=== PATIENT | male | born 1950 | race Two or more races ===

== ENCOUNTER 2017-01-31 15:38 | Emergency (ER) | payer SELFPAY ==
[~2017-01-31] VITALS: Ht 165.1 cm; Wt 45.4 kg
[~2017-01-31 15:38] MED LIST: NKM
--- NOTE | 2017-01-31 15:45 | Emergency Room Report ---
History of Present Illness General Chief Complaint: Generalized Weakness Source: Patient, EMS Present Illness HPI Patient present with shortness of breath Paramedics reported that the [facility] He appeared to be weak Patient was not able to walk up the stairs Upon arrival patient states that he was told that [facility] that he had low sugar And that he did not need any blood He also states that he was low on penicillin Patient does complain of shortness of breath He feels that exertion does worsen his symptoms Allergies: Coded Allergies: No Known Allergies (Unverified , 01/31/17) Patient History Past Medical History: see triage record Pertinent Family History: none Reviewed Nursing Documentation: PMH: Agreed, PSxH: Agreed Nursing Documentation-PMH Past Medical History: No History, Except For Review of Systems All Other Systems: negative except mentioned in HPI Physical Exam Vital Signs Date Time Temp Pulse Resp B/P (MAP) Pulse Ox O2 Delivery O2 Flow Rate FiO2 01/31/17 15:26 90 17 82/52 97 Room Air Sp02 EP Interpretation: reviewed, normal General Appearance: mild distress - Appears short of breath Head: normocephalic, atraumatic Eyes: bilateral eye PERRL, bilateral eye EOMI ENT: dry mucus membranes Neck: supple Respiratory: crackles - Diffusely in both lower lobes Cardiovascular #1: regular rate, rhythm, no edema Gastrointestinal: soft, no mass Musculoskeletal: normal inspection Neurologic: alert, oriented x3, responsive Psychiatric: normal inspection Skin: other - Appears disheveled no obvious open wounds Lymphatic: no adenopathy Medical Decision Making Diagnostic Impression: Primary Impression: Refusal of care by patient ER Course Patient is a fairly complex patient with multiple differential to consideration including but not limited to cardiac cardiopulmonary and vascular emergencies Patient had extensive blood work initiated along with imaging At this time was notified that the patient was refusing any intervention I did also talk to the patient at bedside Explained the importance of obtaining this workup Patient reports that he had everything done yesterday and 2 days ago He wants to be left alone And does not want to have anything else done Patient states that he does not want to be 'bugged' any more and wants to go I explained to the patient the importance of initial workup, he might require inpatient hospitalization At this time we are not sure if he has pneumonia or anemia He again reports that he had everything done yesterday at [facility] At this time patient stood up from bedside removing his cardiac cath rn And ambulates out of the emergency room Refusing further care Patient is aware of the possible risk factors of worsening symptoms and possible He is awake alert , under appropriate mentation and leaving AGAINST MEDICAL ADVICE Rhythm Strip Diag. Results EP Interpretation: yes Rate: 88 Rhythm: NSR, no PVC's, no ectopy Last Vital Signs Date Time Temp Pulse Resp B/P (MAP) Pulse Ox O2 Delivery O2 Flow Rate FiO2 01/31/17 15:26 90 17 82/52 97 Room Air Status: unchanged Disposition: AGAINST MEDICAL ADVICE Condition: Serious Additional Instructions: Patient was requested several times to please stay in the emergency room for further evaluation, patient ambulating refusing care, telling nursing staff that he wants to eat, however after being presented with option of sandwich he refused it SURI SELF D.O. Jan 31, 2017 15:45
[2017-01-31 16:00] VITALS: BP 98/61
[2017-01-31 16:10] VITALS: BP 98/61
--- NOTE | 2017-02-02 08:46 | Cardiology Report ---
APPROVED REPORT EKG Measurement Heart [id number] PA [id number] Sinus rhythm with sinus arrhythmia with short PA Prolonged QT Abnormal ECG
== END 2017-01-31 16:10 | disposition left against medical advice (07) ==
LOC: EDBD 15:38 → EMR 15:50
DX: R06.02 Shortness of breath (principal)
CPT/HCPCS: 93005; 99282